=== PATIENT | female | born 1950 | race Caucasian/White ===

== ENCOUNTER 2025-08-18 10:08 | Outpatient (CLI) | payer MEDICARE, BC ==
[~2025-08-18 10:08] MED LIST: Iopamidol 300 61% 100 ML VIAL FS ONE
[2025-08-18 12:54] LABS: Estimated GFR - POC 92.0
== END 2025-08-18 10:09 | disposition home or self-care (01) ==
LOC: CSHCT 10:08
PROVIDERS: ATTEND Urology
DX: N20.0 Calculus of kidney (principal); Z87.448 Personal history of other diseases of urinary system; Z87.898 Personal history of other specified conditions
CPT/HCPCS: 74178; 80048; 82565; Q9967; 36415